=== PATIENT | male | born 1990 | race Caucasian/White ===

== ENCOUNTER 2024-03-01 09:24 | Outpatient (CLI) | payer OTHER, SELFPAY | END 2024-03-01 09:25 | disposition home or self-care (01) | LOC: NFLDREF 03-03 14:46 | PROVIDERS: PCP Family Medicine; Referring Provider Family Medicine; Visit Provider Family Medicine | DX: Z13.220 Encounter for screening for lipoid disorders (principal) | CPT/HCPCS: 80061 ==